=== PATIENT | male | born 1990 | race Asian ===

== ENCOUNTER 2020-04-26 01:40 | Emergency (ER) | payer OTHER ==
[~2020-04-26] VITALS: Ht 177.8 cm; Wt 86.2 kg
[2020-04-26] MEDS ORDERED: KETOROLAC TROMETHAMINE 30 MG/ML VIAL IV STA (02:10)
[2020-04-26] MEDS ORDERED: KETOROLAC TROMETHAMINE 30 MG/ML VIAL ONE (02:19)
[2020-04-26] MEDS ORDERED: NAPROSYN500 MG PO (03:01)
== END 2020-04-26 03:11 | disposition home or self-care (01) ==
LOC: FSED 02:08
DX: R07.9 Chest pain, unspecified (principal); M79.18 Myalgia, other site; R74.8 Abnormal levels of other serum enzymes; F17.210 Nicotine dependence, cigarettes, uncomplicated
CPT/HCPCS: 71046; 80053; 81003; 82553; 84484; 85025; 85379; 93005; 99284; J1885